=== PATIENT | female | born 1995 | race Caucasian/White ===

== ENCOUNTER 2017-11-17 15:33 | Emergency (ER) | payer OTHER ==
[~2017-11-17] VITALS: Ht 165.1 cm; Wt 88.0 kg
[2017-11-17 15:36] VITALS: TEMP 36.8; Ht 165.1 cm; Wt 88.0 kg
[2017-11-17] MEDS ORDERED: KETOROLAC TROMETHAMINE 30 MG/ML VIAL IV STA (16:00)
--- NOTE | 2017-11-17 16:05 | EMERGENCY ROOM VISIT NOTE ---
History First contact with patient: 15:43 Chief Complaint: RIB PAIN Stated Complaint: STABBING PAIN ON LT SIDE RIBCAGE History of Present Illness The patient is a 22 year old female who presents to the Emergency Room with complaints of left-sided chest wall pain which began 3 days ago. The patient states she noticed the pain Tuesday morning when she awoke from sleep. She states she described it as a pulling sensation, and felt that she may have slept on it funny. The patient states the pain worsened throughout the day, and improved with rest. She states she has increased pain with deep breathing, coughing, moving, or sneezing. She states she has not recently been ill, denies any recent cough. She does work that she eats, however was not working in the 2 days prior to onset of pain. 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 The patient denies any dyspnea or chest pressure. 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 She denies any leg swelling. She denies any abdominal pain or reflux. There are no palpitations. The patient has been taking intermittent ibuprofen without significant relief in her symptoms. Review of Systems A complete 10 point review of systems was reviewed with the patient with pertinent positives and negatives as per history of present illness. All else were negative. Past Medical/Surgical History None Social History Smoking Status: Never Smoker Current/Historical Medications No Active Prescriptions or Reported Meds Physical Exam Vital Signs Date Time Temp Pulse Resp B/P (MAP) Pulse Ox O2 Delivery O2 Flow Rate FiO2 11/17/17 17:30 78 20 112/78 97 Room Air 11/17/17 16:02 82 11/17/17 15:52 Room Air 11/17/17 15:36 36.8 101 18 144/85 97 Room Air Physical Exam VITALS: Vitals are noted on the nurse's note and reviewed by myself. Vital signs stable. GENERAL: This is a 22-year-old white female, in no acute distress, nondiaphoretic, well-developed well-nourished. SKIN: The skin was without rashes, erythema, edema, or bruising. There is no tenting of the skin. Capillary reflex less than 2 seconds. HEAD: Normocephalic atraumatic. EARS: External auditory canals clear, tympanic membranes pearly wagner without erythema or effusion bilaterally. EYES: Pupils equal round and reactive to light and accommodation. Conjunctivae without injection, sclerae without icterus. Extraocular movements intact. NOSE: Patent, turbinates without inflammation or discharge. No sinus tenderness. MOUTH: Mucous membranes moist. Tonsils are not enlarged. Pharynx without erythema or exudate. Uvula midline. Airway patent. Tongue does not deviate. NECK: Supple without nuchal rigidity. No lymphadenopathy. No thyromegaly. Cervical spine is nontender. No JVD. HEART: Regular rate and rhythm without murmurs gallops or rubs. LUNGS: Clear to auscultation bilaterally without wheezes, rales or rhonchi. No dullness to percussion. No retractions or accessory muscle use. ABDOMEN: Positive bowel sounds x 4. Normal tympanic percussion. Soft, nontender, without masses or organomegaly. Branch sign negative. No guarding or rebound tenderness. MUSCULOSKELETAL: No muscle atrophy, erythema, or edema noted. There is tenderness noted over the left lateral ribs. Full range of motion without joint tenderness in all extremities. No other tenderness to palpation. Normal gait. Strength 5/5 throughout. NEURO: Patient was alert and oriented to person place and time. Normal sensation to light and sharp touch. Deep tendon reflexes 2+ throughout. No focal neurological deficits. Medical Decision & Procedures ER Provider Diagnostic Interpretation: L RIBS UNILATERAL WITH PA CHEST HISTORY: 22 years-old Female left side chest/rib pain acute atypical chest pain with left-sided rib pain. No acute reported trauma COMPARISON: None available TECHNIQUE: PA view of the chest with 4 views of the left ribs FINDINGS: The cardiomediastinal and hilar silhouettes are within normal limits. There is no pneumothorax, pleural effusion, focal airspace consolidation or overt pulmonary edema. No acute displaced rib fracture identified. The bones appear intact. IMPRESSION: 1. No acute process of the chest. 2. No acute displaced rib fracture identified. The above report was generated using voice recognition software. It may contain grammatical, syntax or spelling errors. Electronically signed by: Raj Laguerre M.D. 11/17/2017 5:14 PM Dictated Date/Time: 11/17/2017 5:12 PM Laboratory Results 3/15/18 16:15 Red Blood Count 4.37, Mean Corpuscular Volume 85.8, Mean Corpuscular Hemoglobin 30.0, Mean Corpuscular Hemoglobin Concent 34.9, Mean Platelet Volume 10.8, Neutrophils (%) (Auto) 67.7, Lymphocytes (%) (Auto) 19.4, Monocytes (%) (Auto) 10.5, Eosinophils (%) (Auto) 2.0, Basophils (%) (Auto) 0.2, Neutrophils # (Auto ) 4.37, Lymphocytes # (Auto) 1.25, Monocytes # (Auto) 0.68, Eosinophils # (Auto ) 0.13, Basophils # (Auto) 0.01 11/17/17 16:15 Test 11/17/17 16:15 White Blood Count 6.45 K/uL (4.8-10.8) Red Blood Count 4.37 M/uL (4.2-5.4) Hemoglobin 13.1 g/dL (12.0-16.0) Hematocrit 37.5 % (37-47) Mean Corpuscular Volume 85.8 fL (80-100) Mean Corpuscular Hemoglobin 30.0 pg (25-34) Mean Corpuscular Hemoglobin Concent 34.9 g/dl (32-36) Platelet Count 203 K/uL (130-400) Mean Platelet Volume 10.8 fL (7.4-10.4) Neutrophils (%) (Auto) 67.7 % Lymphocytes (%) (Auto) 19.4 % Monocytes (%) (Auto) 10.5 % Eosinophils (%) (Auto) 2.0 % Basophils (%) (Auto) 0.2 % Neutrophils # (Auto) 4.37 K/uL (1.4-6.5) Lymphocytes # (Auto) 1.25 K/uL (1.2-3.4) Monocytes # (Auto) 0.68 K/uL (0.11-0.59) Eosinophils # (Auto) 0.13 K/uL (0-0.5) Basophils # (Auto) 0.01 K/uL (0-0.2) RDW Standard Deviation 38.1 fL (36.4-46.3) RDW Coefficient of Variation 12.1 % (11.5-14.5) Immature Granulocyte % (Auto) 0.2 % Immature Granulocyte # (Auto) 0.01 K/uL (0.00-0.02) Anion Gap 8.0 mmol/L (3-11) Est Creatinine Clear Calc Drug Dose 146.5 ml/min Estimated GFR () 145.3 Estimated GFR (Non- 125.4 BUN/Creatinine Ratio 12.4 (10-20) Calcium Level 8.7 mg/dl (8.5-10.1) Total Bilirubin 0.7 mg/dl (0.2-1) Aspartate Amino Transf (AST/SGOT) 43 U/L (15-37) Alanine Aminotransferase (ALT/SGPT) 75 U/L (12-78) Alkaline Phosphatase 83 U/L (45-117) Troponin I < 0.015 ng/ml (0-0.045) Total Protein 7.7 gm/dl (6.4-8.2) Albumin 3.8 gm/dl (3.4-5.0) Globulin 3.9 gm/dl (2.5-4.0) Albumin/Globulin Ratio 1.0 (0.9-2) Medications Administered Medications (Trade) Dose Ordered Sig/Lillian Route Start Time Stop Time Status Last Admin Dose Admin Ketorolac Tromethamine (Toradol Inj) 30 mg NOW STAT IV 11/17/17 16:00 11/17/17 16:06 DC 11/17/17 16:28 30 MG ECG Per My Interpretation Indication: chest pain Rate (beats per minute): 84 Rhythm: sinus with SA Findings: no acute ischemic change, no ectopy Comparison ECG Date: no prior available ED Course The patient was seen and evaluated as above. EKG obtained and reviewed by myself as above. IV access obtained, labs drawn. The patient was given 30 mg Toradol IV for her pain. X-ray of the right ribs with PA chest ordered and reviewed by myself and radiologist as above. The patient was reassessed. I discussed the findings with the patient at bedside. She does report mild improvement in her symptoms. Discharge instructions reviewed, the patient was discharged home in good condition. Medical Decision This is a 22-year-old female presents to the emergency department today complaining of left rib pain. The pain began upon awakening, and is worse with palpation, coughing, and sneezing. Her symptoms are consistent with a muscle strain/costochondritis. Cardiac workup was performed due to the nature of the discomfort. CBC is without leukocytosis, anemia, thrombocytopenia. CMP did not reveal any significant electrolyte, renal, hepatic abnormalities. Troponin testing was negative. The patient was unable to provide urine sample. X-ray did not reveal any acute abnormalities. The patient's symptoms did improve with IV Toradol. I discussed conservative management with the patient. She was encouraged to follow-up outpatient with [facility]/her PCP. The patient was agreeable to the plan of care. All questions were answered to the patient's satisfaction. I did discuss the case with my attending. Etiologies such as cardiac ischemia, aortic dissection, pulmonary embolism, pneumonia, pneumothorax, musculoskeletal, infections, gastrointestinal, as well as others were entertained. The chart was completed utilizing [email or web address] Speech voice recognition software. Grammatical errors, random word insertions, pronoun errors, and incomplete sentences are an occasional consequence of this system due to software limitations, ambient noise, and hardware issues. Any formal questions or concerns about the content, text, or information contained within the body of this dictation should be directly addressed to the provider for clarification. Medication Reconcilliation Current Medication List: was personally reviewed by me Blood Pressure Screening Patient's blood pressure: Normal blood pressure Impression Primary Impression: Left-sided chest wall pain Departure Information Dispostion Home / Self-Care Condition GOOD Prescriptions No Active Prescriptions or Reported Meds Referrals No Doctor, Assigned (PCP) [facility] Patient Instructions ED Chest Pain Costochondritis, ED Contusion Rib, My [facility] Additional Instructions You have been treated in the Emergency Department for Rib pain/chest wall pain. Labs and imaging did not reveal any acute abnormalities or concerns for cardiac etiology. For pain control, you can use the following [id number] medicines (if >12 yo): Ibuprofen(Motrin, Advil) may be used for fever or pain. Use 600mg every six hours as needed. Take with food. Avoid using more than 2400mg in a 24 hour period. Do not use 2400mg per day for more than three consecutive days without physician direction. Prolonged inappropriate use can lead to stomach upset or ulcers. (AND/OR) Acetaminophen(Tylenol) may be used for fever or pain. Use 1000mg every six hours as needed. Avoid using more than 3000mg in a 24 hour period. If this is an acute injury, ice can be applied to the area of pain for the first 3 days to help decrease pain and inflammation. After the first 3 days, a heating pad can be used over the area for continued soothing relief. To minimize your discomfort, you can hug a pillow while coughing or sneezing. Additionally, you should continue to force yourself to take nice, deep breaths. Full expansion of the lungs is necessary to prevent the accumulation of fluid in the lung tissue and development of pneumonia. You should schedule a follow-up appointment in 1 week with your Primary Care Provider/[facility] for further evaluation and treatment of your pain. Return to the Emergency Department if your current symptoms worsen despite treatment course outlined above, or if you develop any of the following symptoms : intractable pain despite aforementioned treatment course, development of a wet cough, bloody cough, fever, chills, or increased shortness of breath.
[2017-11-17 16:31] LABS: BASO % 0.2 %; BASO ABS # 0.01 K/uL (0-0.2); EOS ABS # 0.13 K/uL (0-0.5); HEMATOCRIT 37.5 % (37-47); HEMOGLOBIN 13.1 g/dL (12.0-16.0); IG# 0.01 K/uL (0.00-0.02); LYMPH % 19.4 %; LYMPH ABS # 1.25 K/uL (1.2-3.4); MEAN CELL VOLUME 85.8 fL (80-100); MEAN CORPUSCULAR HGB CONC 34.9 g/dl (32-36); MEAN PLATELET VOLUME 10.8 fL (7.4-10.4); MONO % 10.5 %; MONO ABS # 0.68 K/uL (0.11-0.59); NEUT % 67.7 %; NEUT ABS # 4.37 K/uL (1.4-6.5); PLATELET COUNT 203 K/uL (130-400); RED CELL DISTRIBUTION WIDTH CV 12.1 % (11.5-14.5); RED CELL DISTRIBUTION WIDTH SD 38.1 fL (36.4-46.3); WHITE BLOOD COUNT 6.45 K/uL (4.8-10.8)
[2017-11-17 16:52] LABS: ALBUMIN 3.8 gm/dl (3.4-5.0); ALT/SGPT 75 U/L (12-78); AST/SGOT 43 U/L (15-37); BLOOD UREA NITROGEN 8 mg/dl (7-18); CALCIUM 8.7 mg/dl (8.5-10.1); CARBON DIOXIDE 25 mmol/L (21-32); CREATININE 0.66 mg/dl (0.60-1.20); GLUCOSE 83 mg/dl (70-99); POTASSIUM 3.6 mmol/L (3.5-5.1); SODIUM 139 mmol/L (136-145)
[2017-11-17 16:56] LABS: ALKALINE PHOSPHATASE 83 U/L (45-117); TOTAL PROTEIN 7.7 gm/dl (6.4-8.2)
--- NOTE | 2017-11-17 17:15 | DIAGNOSTIC IMAGING REPORT ---
L RIBS UNILATERAL WITH PA CHEST HISTORY: 22 years-old Female left side chest/rib pain acute atypical chest pain with left-sided rib pain. No acute reported trauma COMPARISON: None available TECHNIQUE: PA view of the chest with 4 views of the left ribs FINDINGS: The cardiomediastinal and hilar silhouettes are within normal limits. There is no pneumothorax, pleural effusion, focal airspace consolidation or overt pulmonary edema. No acute displaced rib fracture identified. The bones appear intact. IMPRESSION: 1. No acute process of the chest. 2. No acute displaced rib fracture identified. The above report was generated using voice recognition software. It may contain grammatical, syntax or spelling errors. Electronically signed by: Raj Laguerre M.D. 11/17/2017 5:14 PM Dictated Date/Time: 11/17/2017 5:12 PM
[2017-11-17 17:30] VITALS: BP 112/78; PULSE 78; O2SAT 97
== END 2017-11-17 17:55 | disposition home or self-care (01) ==
LOC: C.EDB 15:34 → C.EDA 17:55
DX: R07.89 Other chest pain (principal)